=== PATIENT | female | born 1950 | race Caucasian/White ===

== ENCOUNTER 2020-09-02 10:51 | Outpatient (CLI) | payer MEDICARE, BC ==
[2020-09-02 11:17] LABS: Bilirubin Small (Negative); Blood, Urine Moderate (Negative); Clarity Cloudy (Clear); Glucose, Urine (Dipstick) Negative (Negative); Ketone, Urine 15 mg/dL (Negative); Leukocyte Moderate (Negative); Nitrite Negative (Negative); Protein, Urine (Dipstick) > or equal to 300 mg/dL (Neg-Trace); pH, Urine 7.5 (5.0-9.0)
[2020-09-02 11:19] LABS: Specific Gravity, Urine 1.019 (1.002-1.036)
[2020-09-02 11:28] LABS: Bacteria/HPF 4+ HPF (None Seen); RBC/HPF Greater than 50 HPF (0-3); Squamous Epithelial 0-3 HPF (0-3); Triple Phosphate Crystal 1+ HPF (None Seen); WBC/HPF Greater Than 50 HPF (0-3)
[2020-09-02 11:37] LABS: ALT (SGPT) 7 U/L (8-55); AST (SGOT) 13 U/L (5-34); Albumin 3.8 g/dL (3.4-4.8); Alkaline Phosphatase 105 U/L (40-110); Anion Gap 15 mmol/L (10-20); BUN (Urea Nitrogen) 18 mg/dL (9.8-20.1); Bilirubin, Total 0.5 mg/dL (0.2-1.2); Calc. Creatinine Clearance 0 mL/min (70-130); Carbon Dioxide 27 mmol/L (23-31); Chloride 105 mmol/L (98-107); Estimated GFR-MDRD 70; Glucose 104 mg/dL (83-110); Protein, Total 5.8 g/dL (6.0-8.3); Sodium 143 mmol/L (136-145)
[2020-09-02 11:44] LABS: #Basophils 0.1 thou/uL (0.0-0.2); #Eosinphils 0.2 thou/uL (0.0-0.7); #Lymphocytes 0.9 thou/uL (1.20-3.40); #Monocytes 0.4 thou/uL (0.11-0.59); #Neutrophils 3.2 thou/uL (1.40-6.50); %Basophils 1.2 % (0.0-1.0); %Eosinophils 4.6 % (0.0-10.0); %Lymphocytes 19.2 % (21.0-51.0); %Monocytes 8.3 % (0.0-10.0); %Neutrophils 66.7 % (42.0-75.0); Hemoglobin 12.8 g/dL (12.0-16.0); Mean Corpuscular HGB CONC 31.9 g/dL (32.0-36.0); Mean Corpuscular Hemoglobin 31.4 pg (27.0-31.0); Mean Corpuscular Volume 98.4 fL (78.0-98.0); Mean Platelet Volume 8.1 fL (7.4-10.4); Platelet Count 137 thou/uL (130-400); RBC Distribution Width 12.2 % (11.5-14.5); Red Blood Cell (RBC) Count 4.06 mill/uL (4.20-5.40); White Blood Cell (WBC) Count 4.8 thou/uL (4.8-10.8)
== END 2020-09-02 10:52 | disposition home or self-care (01) ==
LOC: MADLAB 10:51
PROVIDERS: ATTEND Psychiatry & Neurology Neurology
DX: G20 Parkinson's disease (principal); I10 Essential (primary) hypertension; I48.91 Unspecified atrial fibrillation; E66.9 Obesity, unspecified
CPT/HCPCS: 80053; 81001; 85025; 87077; 87086

== ENCOUNTER 2020-10-02 15:40 | Inpatient (IN) | payer MEDICARE, BC ==
[2020-10-02] MEDS ORDERED: Melatonin 3 MG TAB PO PRN (18:54)
[2020-10-02] MEDS ORDERED: Loperamide HCl 2 MG CAP PO PRN (18:54)
[2020-10-02] MEDS ORDERED: Calcium Carbonate 500 MG ChewTAB PO PRN (18:54)
[2020-10-02] MEDS ORDERED: Diabetic Tussin 200 MG/10 ML UDCUP PO PRN (18:54)
[2020-10-02] MEDS ORDERED: Cepastat Lozenges 1 LOZ PO PRN (18:54)
[2020-10-02] MEDS ORDERED: Simethicone Chewable 80 MG TAB PO PRN (18:54)
[2020-10-02] MEDS ORDERED: Milk Of Magnesia 30 ML UDCUP PO PRN (18:54)
[2020-10-02] MEDS ORDERED: Albuterol 200 PUFF (6.7GM INHALER) INH PRN (18:54)
[2020-10-02] MEDS ORDERED: cloNIDine 0.1 MG TAB PO PRN (18:54)
[2020-10-02] MEDS: Metoprolol Tartrate 25 MG TAB PO SCH (22:26)
[2020-10-02] MEDS: Aspirin Chewable 81 MG TAB PO SCH (22:26)
--- NOTE | 2020-10-03 06:40 | HP ---
PCP: Garth Darnell MD NEUROLOGIST: Fatmata Sy MD REASON FOR ADMISSION: Skilled rehab in [facility] after recent hospitalization. HISTORY OF PRESENT ILLNESS: Ms. Fuller is a very pleasant 70-year-old female with significant history of Parkinson disease, hypertension, and atrial fibrillation. She initially presented to [facility] on 09/14/2020 due to altered mental status. She was diagnosed then with acute metabolic encephalopathy, most likely secondary to urinary tract infection. She was treated with antibiotics. She was seen by Neurology Service at that time. MRI of the brain did not show any acute intracranial abnormality. She was then diagnosed with nonspecific cerebral dysfunction. The patient improved clinically during the hospital course. She was discharged to [facility] for inpatient rehab due to significant debility. Prior to discharge, it was reported that the patient's blood pressure was noted to be elevated. Metoprolol was added to her losartan. The patient did well during inpatient rehab. She remains on minimal assistance for transfers, bed mobility, and ambulation. She is moderate to maximal assistance for basic ADLs. She is maximal assistance with dressing. She remains to have an unsteady gait and decreased strength and balance. After she completed inpatient rehab, the patient was subsequently referred to [facility] for further skilled rehab prior to going back to the home environment. When evaluated today, the patient is alert and oriented. States that her just left. Most of the information was taken from the records. The patient is able to contribute some of the information. She is comfortable in bed. She reports no new issues at this point. PAST MEDICAL HISTORY: She has a history of CKD stage 2, hypertension, atrial fibrillation, asthma, chronic reflux esophagitis, osteoarthritis, Parkinson disease, esophageal stricture with erosion, status post dilatation, obesity, lumbar disk disease, overactive bladder, history of diverticulitis. PAST SURGICAL HISTORY: Appendectomy, hysterectomy, TKR, spinal surgery, esophageal dilatation, A & P repair non-mesh, cardiac catheterization, EGD, BTL, , colonoscopy, right knee surgery x3, urodynamic, right forearm tendon repair. FAMILY HISTORY: Noncontributory. SOCIAL HISTORY: She is . She denies history of tobacco, alcohol, or illicit drug use. CURRENT MEDICATIONS: 1. Acetaminophen 1000 mg p.o. q.4 hours p.r.n. 2. Albuterol, Proventil, 2 puffs q.4 hours p.r.n. 3. Amantadine 100 mg q.7 a.m., 1230 and 1830 scheduled. 4. Aspirin 81 mg p.o. at bedtime. 5. Bisacodyl 10 mg daily p.r.n. 6. Calcium carbonate 500 mg p.o. q.i.d. p.r.n. 7. Sinemet 50/200 three times a day, scheduled at 7:00 a.m., 12:30 p.m., 6:30 p.m. 8. Clonidine 0.1 mg p.o. q.6 hours p.r.n. 9. Guaifenesin 1000 mg p.o. q.4 hours p.r.n. 10. Loperamide 2 mg p.o. p.r.n. for diarrhea. 11. Magnesium hydroxide or milk of magnesia 30 mL p.o. daily p.r.n. 12. Melatonin 6 mg p.o. at bedtime p.r.n. 13. Metoprolol 12.5 mg p.o. b.i.d. 14. Myrbetriq 50 mg p.o. q.12:30 schedule. 15. Pantoprazole 40 mg p.o. q.a.m. 16. Polyethylene glycol 17 g p.o. daily. 17. Florastor 250 mg p.o. daily. 18. Simethicone 80 mg t.i.d. p.r.n. 19. Throat lozenges one p.o. b.i.d. 20. Trospium 20 mg p.o. b.i.d. 21. Losartan 100 mg p.o. daily. REVIEW OF SYSTEMS: GENERAL: Denies fever or chills. Reports fatigue, general weakness. HEENT: No acute visual changes or hearing changes, cold symptoms. RESPIRATORY: No shortness of breath, chronic cough, sputum production. Reports history of asthma, baseline symptoms. CARDIO: Denies chest pain, dyspnea on exertion, edema, palpitations. GI: No nausea, vomiting, abdominal pain. Reports constipation. GENITOURINARY: No dysuria, hematuria, frequency, or urgency. Reports incontinence. NEURO: Denies paresthesia, focal paralysis, incoordination. MUSCULOSKELETAL: Reports myalgia, stiffness. No joint swelling. SKIN: Denies rashes or lesions. PSYCH: Denies depressive symptoms, insomnia, or anxiety. PHYSICAL EXAMINATION: VITAL SIGNS: Current vital signs, blood pressure 134/80, temperature 98.4, pulse 74, respirations 18, O2 saturations 96%. Weight 147 pounds and 2 ounces. Height 5 feet 2 inches. GENERAL: The patient is awake, alert, and oriented x3. Not in distress, comfortable in bed. HEENT: Normocephalic, atraumatic. PERRL; intact EOM, anicteric sclerae. Oral mucosa is moist. NECK: Supple. No LAD. No JVD. CHEST: Normal excursion. Clear to auscultation bilaterally. CARDIAC: Rate controlled. Normal S1 and S2. No murmurs. ABDOMEN: Flat, soft. Normoactive bowel sounds. Nondistended, nontender. Negative CVA tenderness in bilaterally. EXTREMITIES: No edema. No cyanosis. NEUROLOGIC: Nonfocal. Speech: stuttering some, but able to express self. Cogwheel rigidity noted. Gait unsteady. PSYCH: Clam, appropriate mood and affect. ASSESSMENT AND PLAN: 1. Deconditioning secondary to general weakness. 2. Parkinson disease. 3. Hypertension. 4. Paroxysmal atrial fibrillation. 5. History of toxic metabolic encephalopathy secondary to urinary tract infection. 6. History of urinary tract infection with Proteus mirabilis.Treated. 7. Urinary incontinence. 8. History of oropharyngeal dysphagia, currently on regular diet and thin liquids. 9. History of asthma. 10. Chronic gastroesophageal reflux disease. 11. Overactive bladder. PLAN: Patient is admitted to [facility] for skilled rehab. We will continue current medications as per list. PT, OT eval and treat. We will consult dietitian to evaluate and make any recommendations for better nutrition. We will watch calorie intake and p.o. intake. We will monitor closely for signs of infection or breakdown. We will monitor for signs of UTI secondary to history of recent UTI. Per records, the patient's baseline functional status was reported to be ambulatory independently with ADL contact guard. The patient is expected to participate and benefit from skilled rehab and hopefully will be able to go back home when therapy goal is met. ESTIMATED LENGTH OF STAY: Two to three weeks. Job ID: [id number] [facility]
[2020-10-03] MEDS ORDERED: Amantadine HCl 100 mg Capsule PO SCH (07:00)
[2020-10-03] MEDS ORDERED: Carbidopa/Levodopa CR 50-200 mg Tablet PO SCH (07:00)
[2020-10-03] MEDS: Trospium 20 MG TAB PO SCH ×2 (08:53→20:48)
[2020-10-03] MEDS: Metoprolol Tartrate 25 MG TAB PO SCH ×2 (08:53→20:48)
[2020-10-03] MEDS: Saccharomyces boulardii 250 MG CAP PO SCH (08:53)
[2020-10-03] MEDS: Amantadine HCl 100 mg Capsule PO SCH ×3 (08:53→20:46)
[2020-10-03] MEDS: Carbidopa/Levodopa CR 50-200 mg Tablet PO SCH ×3 (08:54→20:46)
[2020-10-03] MEDS: Losartan 25 MG TAB PO SCH (08:54)
[2020-10-03] MEDS: Polyethylene Glycol 3350 17 GM Packet PO SCH (08:55)
[2020-10-03] MEDS: Aspirin Chewable 81 MG TAB PO SCH (20:47)
[2020-10-04] MEDS: Trospium 20 MG TAB PO SCH ×2 (08:11→21:05)
[2020-10-04] MEDS: Saccharomyces boulardii 250 MG CAP PO SCH (08:11)
[2020-10-04] MEDS: Polyethylene Glycol 3350 17 GM Packet PO SCH (08:11)
[2020-10-04] MEDS: Amantadine HCl 100 mg Capsule PO SCH ×3 (08:12→20:09)
[2020-10-04] MEDS: Losartan 25 MG TAB PO SCH (08:12)
[2020-10-04] MEDS: Metoprolol Tartrate 25 MG TAB PO SCH ×2 (08:13→20:10)
[2020-10-04] MEDS: Carbidopa/Levodopa CR 50-200 mg Tablet PO SCH ×3 (08:13→20:10)
[2020-10-04] MEDS: Aspirin Chewable 81 MG TAB PO SCH (20:10)
[2020-10-05] MEDS: Polyethylene Glycol 3350 17 GM Packet PO SCH (08:17)
[2020-10-05] MEDS: Trospium 20 MG TAB PO SCH ×2 (08:18→19:59)
[2020-10-05] MEDS: Losartan 25 MG TAB PO SCH (08:18)
[2020-10-05] MEDS: Amantadine HCl 100 mg Capsule PO SCH ×3 (08:18→19:59)
[2020-10-05] MEDS: Saccharomyces boulardii 250 MG CAP PO SCH (08:19)
[2020-10-05] MEDS: Carbidopa/Levodopa CR 50-200 mg Tablet PO SCH ×3 (08:19→20:00)
[2020-10-05] MEDS: Metoprolol Tartrate 25 MG TAB PO SCH ×2 (08:19→19:59)
[2020-10-05] MEDS ORDERED: Diabetic Tussin 200 MG/10 ML UDCUP PO PRN (13:08)
[2020-10-05] MEDS: Aspirin Chewable 81 MG TAB PO SCH (19:59)
[2020-10-06] MEDS: Metoprolol Tartrate 25 MG TAB PO SCH ×2 (08:11→20:40)
[2020-10-06] MEDS: Saccharomyces boulardii 250 MG CAP PO SCH (08:11)
[2020-10-06] MEDS: Trospium 20 MG TAB PO SCH ×2 (08:12→20:40)
[2020-10-06] MEDS: Carbidopa/Levodopa CR 50-200 mg Tablet PO SCH ×3 (08:12→20:47)
[2020-10-06] MEDS: Amantadine HCl 100 mg Capsule PO SCH ×3 (08:12→20:45)
[2020-10-06] MEDS: Losartan 25 MG TAB PO SCH (08:12)
[2020-10-06] MEDS: Polyethylene Glycol 3350 17 GM Packet PO SCH (08:18)
[2020-10-06] MEDS: Aspirin Chewable 81 MG TAB PO SCH (20:40)
[2020-10-07] MEDS: Saccharomyces boulardii 250 MG CAP PO SCH (08:48)
[2020-10-07] MEDS: Carbidopa/Levodopa CR 50-200 mg Tablet PO SCH ×3 (08:48→20:11)
[2020-10-07] MEDS: Trospium 20 MG TAB PO SCH ×2 (08:48→20:11)
[2020-10-07] MEDS: Metoprolol Tartrate 25 MG TAB PO SCH ×2 (08:48→20:11)
[2020-10-07] MEDS: Amantadine HCl 100 mg Capsule PO SCH ×3 (08:48→20:11)
[2020-10-07] MEDS: Acetaminophen 500 MG TAB PO PRN (08:50)
[2020-10-07] MEDS: Polyethylene Glycol 3350 17 GM Packet PO SCH (08:51)
[2020-10-07] MEDS: Losartan 25 MG TAB PO SCH (08:54)
[2020-10-07] MEDS: Aspirin Chewable 81 MG TAB PO SCH (20:11)
[2020-10-08] MEDS: Bisacodyl 10 MG SUPP PR PRN (00:24)
[2020-10-08] MEDS: Amantadine HCl 100 mg Capsule PO SCH ×3 (08:10→20:09)
[2020-10-08] MEDS: Carbidopa/Levodopa CR 50-200 mg Tablet PO SCH ×3 (08:10→20:11)
[2020-10-08] MEDS: Polyethylene Glycol 3350 17 GM Packet PO SCH (08:11)
[2020-10-08] MEDS: Trospium 20 MG TAB PO SCH ×2 (08:11→20:11)
[2020-10-08] MEDS: Saccharomyces boulardii 250 MG CAP PO SCH (08:11)
[2020-10-08] MEDS: Losartan 25 MG TAB PO SCH (08:11)
[2020-10-08] MEDS: Metoprolol Tartrate 25 MG TAB PO SCH ×2 (08:11→20:09)
[2020-10-08] MEDS: Aspirin Chewable 81 MG TAB PO SCH (20:11)
[2020-10-08] MEDS: Acetaminophen 500 MG TAB PO PRN (20:11)
[2020-10-09] MEDS: Amantadine HCl 100 mg Capsule PO SCH ×3 (07:51→19:55)
[2020-10-09] MEDS: Saccharomyces boulardii 250 MG CAP PO SCH (07:52)
[2020-10-09] MEDS: Polyethylene Glycol 3350 17 GM Packet PO SCH (07:52)
[2020-10-09] MEDS: Carbidopa/Levodopa CR 50-200 mg Tablet PO SCH ×3 (07:52→19:55)
[2020-10-09] MEDS: Trospium 20 MG TAB PO SCH ×2 (07:52→19:57)
[2020-10-09] MEDS: Losartan 25 MG TAB PO SCH (07:52)
[2020-10-09] MEDS: Metoprolol Tartrate 25 MG TAB PO SCH ×2 (07:59→19:56)
[2020-10-09 15:55] LABS: Bilirubin Negative (Negative); Blood, Urine Negative (Negative); Clarity Clear (Clear); Glucose, Urine (Dipstick) Negative (Negative); Ketone, Urine Negative (Negative); Leukocyte Negative (Negative); Nitrite Negative (Negative); Protein, Urine (Dipstick) Negative (Neg-Trace); Urobilinogen 0.2 mg/dL (Less than 2)
[2020-10-09 16:04] LABS: Bacteria/HPF Rare-Few HPF (None Seen); RBC/HPF 0-3 HPF (0-3); Squamous Epithelial None Seen HPF (0-3); Yeast-Hyphae Rare HPF (None Seen)
[2020-10-09] MEDS: Aspirin Chewable 81 MG TAB PO SCH (19:56)
[2020-10-10] MEDS: Carbidopa/Levodopa CR 50-200 mg Tablet PO SCH ×3 (08:17→20:31)
[2020-10-10] MEDS: Amantadine HCl 100 mg Capsule PO SCH ×3 (08:17→20:30)
[2020-10-10] MEDS: Polyethylene Glycol 3350 17 GM Packet PO SCH (08:17)
[2020-10-10] MEDS: Metoprolol Tartrate 25 MG TAB PO SCH ×2 (08:18→20:31)
[2020-10-10] MEDS: Losartan 25 MG TAB PO SCH (08:18)
[2020-10-10] MEDS: Saccharomyces boulardii 250 MG CAP PO SCH (08:19)
[2020-10-10] MEDS: Trospium 20 MG TAB PO SCH ×2 (08:19→20:31)
[2020-10-10] MEDS: Aspirin Chewable 81 MG TAB PO SCH (20:31)
[2020-10-10] MEDS: Mirtazapine 15 MG TAB PO SCH (20:31)
[2020-10-11] MEDS: Polyethylene Glycol 3350 17 GM Packet PO SCH (08:35)
[2020-10-11] MEDS: Trospium 20 MG TAB PO SCH ×2 (08:36→20:49)
[2020-10-11] MEDS: Metoprolol Tartrate 25 MG TAB PO SCH ×2 (08:36→20:48)
[2020-10-11] MEDS: Saccharomyces boulardii 250 MG CAP PO SCH (08:36)
[2020-10-11] MEDS: Carbidopa/Levodopa CR 50-200 mg Tablet PO SCH ×3 (08:36→20:48)
[2020-10-11] MEDS: Amantadine HCl 100 mg Capsule PO SCH ×3 (08:36→20:48)
[2020-10-11] MEDS: Losartan 25 MG TAB PO SCH (08:37)
[2020-10-11] MEDS: Aspirin Chewable 81 MG TAB PO SCH (20:49)
[2020-10-11] MEDS: Mirtazapine 15 MG TAB PO SCH (20:49)
[2020-10-12] MEDS: Losartan 25 MG TAB PO SCH (07:53)
[2020-10-12] MEDS: Metoprolol Tartrate 25 MG TAB PO SCH ×2 (07:53→20:50)
[2020-10-12] MEDS: Polyethylene Glycol 3350 17 GM Packet PO SCH (07:53)
[2020-10-12] MEDS: Amantadine HCl 100 mg Capsule PO SCH ×3 (07:53→20:49)
[2020-10-12] MEDS: Carbidopa/Levodopa CR 50-200 mg Tablet PO SCH ×3 (07:53→20:50)
[2020-10-12] MEDS: Saccharomyces boulardii 250 MG CAP PO SCH (07:54)
[2020-10-12] MEDS: Trospium 20 MG TAB PO SCH ×2 (07:54→20:49)
[2020-10-12 12:43] LABS: ALT (SGPT) Less than 7 U/L (8-55); AST (SGOT) 16 U/L (5-34); Albumin 3.9 g/dL (3.4-4.8); Alkaline Phosphatase 89 U/L (40-110); Anion Gap 16 mmol/L (10-20); BUN (Urea Nitrogen) 28 mg/dL (9.8-20.1); Bilirubin, Total 0.7 mg/dL (0.2-1.2); Calc. Creatinine Clearance 48 mL/min (70-130); Calcium 9.2 mg/dL (7.8-10.44); Carbon Dioxide 26 mmol/L (23-31); Chloride 99 mmol/L (98-107); Globulin 2.3 g/dL (2.4-3.5); Glucose 122 mg/dL (83-110); Potassium 4.1 mmol/L (3.5-5.1); Protein, Total 6.2 g/dL (6.0-8.3); Sodium 137 mmol/L (136-145)
[2020-10-12 13:01] LABS: %Eosinophils 3.6 % (0.0-10.0); %Monocytes 7.3 % (0.0-10.0); %Neutrophils 71.1 % (42.0-75.0); Hemoglobin 12.7 g/dL (12.0-16.0); Mean Corpuscular HGB CONC 32.5 g/dL (32.0-36.0); Mean Corpuscular Volume 98.2 fL (78.0-98.0); Mean Platelet Volume 9.4 fL (7.4-10.4); Platelet Count 131 thou/uL (130-400); RBC Distribution Width 12.7 % (11.5-14.5); Red Blood Cell (RBC) Count 3.97 mill/uL (4.20-5.40); White Blood Cell (WBC) Count 7.1 thou/uL (4.8-10.8)
[2020-10-12 13:02] LABS: #Basophils 0.1 thou/uL (0.0-0.2); #Eosinphils 0.3 thou/uL (0.0-0.7); #Lymphocytes 1.2 thou/uL (1.20-3.40); #Monocytes 0.5 thou/uL (0.11-0.59); #Neutrophils 5.1 thou/uL (1.40-6.50)
[2020-10-12] MEDS: Aspirin Chewable 81 MG TAB PO SCH (20:49)
[2020-10-12] MEDS: Mirtazapine 15 MG TAB PO SCH (20:50)
[2020-10-12] MEDS: Bisacodyl 10 MG SUPP PR PRN (23:35)
[2020-10-13] MEDS: Trospium 20 MG TAB PO SCH ×2 (07:59→20:03)
[2020-10-13] MEDS: Carbidopa/Levodopa CR 50-200 mg Tablet PO SCH ×3 (07:59→20:03)
[2020-10-13] MEDS: Losartan 25 MG TAB PO SCH (07:59)
[2020-10-13] MEDS: Saccharomyces boulardii 250 MG CAP PO SCH (07:59)
[2020-10-13] MEDS: Amantadine HCl 100 mg Capsule PO SCH ×3 (07:59→20:03)
[2020-10-13] MEDS: Metoprolol Tartrate 25 MG TAB PO SCH ×2 (08:00→20:03)
[2020-10-13] MEDS: Polyethylene Glycol 3350 17 GM Packet PO SCH (08:01)
[2020-10-13] MEDS: Aspirin Chewable 81 MG TAB PO SCH (20:02)
[2020-10-13] MEDS: Mirtazapine 15 MG TAB PO SCH (20:03)
--- NOTE | 2020-10-13 20:05 | PRG ---
DATE OF SERVICE: 10/13/2020 SUBJECTIVE: The patient was seen and examined at the bedside. At this time, no adverse events per nursing. Patient's who is also at the bedside, states the patient has been more rigid and more tremulous lately. He expresses concern that the patient may have missed her a.m. dose of carbidopa/levodopa; however when verified with nursing, patient did receive this medication and was observed to have fully consumed her medication. Otherwise, no adverse events. OBJECTIVE: VITAL SIGNS: Temperature 98.5, pulse 81, respirations 18, oxygen 98% on room air, blood pressure 133/71. GENERAL: The patient is awake, alert, and oriented x3. She does not appear to be in any distress. HEENT: Normocephalic, atraumatic. Extraocular muscles are intact. Moist mucous membranes. CARDIOVASCULAR: Regular rate and rhythm. No murmurs, rubs, or gallops. LUNGS: Clear to auscultation bilaterally. ABDOMEN: Soft, nondistended. Normoactive bowel sounds. NEUROLOGICAL: Cranial nerves 2-12 appear to be intact grossly. The patient does make incomprehensible sounds, but she does not respond appropriately to questioning at this time. She does appear to be very severely rigid and contracted in bilateral upper extremities. GENITOURINARY: Morelos draining clear to dark yellow urine. ASSESSMENT: 1. Physical deconditioning. 2. Parkinson's disease with worsening and rigidity. 3. Hypertension. 4. Paroxysmal atrial fibrillation. 5. Urinary retention. 6. History of overactive bladder. PLAN: 1. Regarding physical deconditioning, physical therapy and occupational therapy are in place. 2. Regarding the patient's history of Parkinson disease, we will continue her current medications. An appointment with Neurology has been set up for tomorrow. 3. Regarding patient's chronic medical conditions, all home medications have been restarted. 4. Regarding urinary retention, we will continue indwelling Morelos placement. We will consider exchanging Morelos within a week. The patient did not tolerate bladder training very well. Due to the fact that patient has been profoundly weak with physical therapy and occupational therapy, she will likely need chcf placement, which has been discussed with patient's and family. We will continue to work on placement prior to discharge. Job ID: [id number]
[2020-10-14] MEDS: Losartan 25 MG TAB PO SCH (08:42)
[2020-10-14] MEDS: Carbidopa/Levodopa CR 50-200 mg Tablet PO SCH ×3 (08:42→20:13)
[2020-10-14] MEDS: Trospium 20 MG TAB PO SCH ×2 (08:43→20:13)
[2020-10-14] MEDS: Saccharomyces boulardii 250 MG CAP PO SCH (08:43)
[2020-10-14] MEDS: Amantadine HCl 100 mg Capsule PO SCH ×3 (08:43→20:13)
[2020-10-14] MEDS: Metoprolol Tartrate 25 MG TAB PO SCH ×2 (08:43→20:14)
[2020-10-14] MEDS: Acetaminophen 500 MG TAB PO PRN (08:44)
[2020-10-14] MEDS: Polyethylene Glycol 3350 17 GM Packet PO SCH (08:44)
[2020-10-14] MEDS: Mirtazapine 15 MG TAB PO SCH (20:13)
[2020-10-14] MEDS: Aspirin Chewable 81 MG TAB PO SCH (20:13)
[2020-10-15] MEDS: Saccharomyces boulardii 250 MG CAP PO SCH (08:04)
[2020-10-15] MEDS: Trospium 20 MG TAB PO SCH ×2 (08:04→21:49)
[2020-10-15] MEDS: Amantadine HCl 100 mg Capsule PO SCH ×3 (08:04→21:50)
[2020-10-15] MEDS: Polyethylene Glycol 3350 17 GM Packet PO SCH (08:04)
[2020-10-15] MEDS: Losartan 25 MG TAB PO SCH (08:05)
[2020-10-15] MEDS: Carbidopa/Levodopa CR 50-200 mg Tablet PO SCH ×3 (08:05→21:50)
[2020-10-15] MEDS: Metoprolol Tartrate 25 MG TAB PO SCH ×2 (08:05→21:49)
[2020-10-15] MEDS: Mirtazapine 15 MG TAB PO SCH (21:49)
[2020-10-15] MEDS: Aspirin Chewable 81 MG TAB PO SCH (21:50)
[2020-10-16] MEDS: Polyethylene Glycol 3350 17 GM Packet PO SCH (08:22)
[2020-10-16] MEDS: Carbidopa/Levodopa CR 50-200 mg Tablet PO SCH ×3 (08:23→21:29)
[2020-10-16] MEDS: Saccharomyces boulardii 250 MG CAP PO SCH (08:24)
[2020-10-16] MEDS: Metoprolol Tartrate 25 MG TAB PO SCH ×2 (08:24→21:30)
[2020-10-16] MEDS: Trospium 20 MG TAB PO SCH ×2 (08:24→21:30)
[2020-10-16] MEDS: Amantadine HCl 100 mg Capsule PO SCH ×3 (08:24→21:29)
[2020-10-16] MEDS: Losartan 25 MG TAB PO SCH (08:25)
[2020-10-16] MEDS: Mirtazapine 15 MG TAB PO SCH (21:31)
[2020-10-16] MEDS: Aspirin Chewable 81 MG TAB PO SCH (21:39)
[2020-10-17] MEDS: Trospium 20 MG TAB PO SCH ×2 (09:25→20:31)
[2020-10-17] MEDS: Polyethylene Glycol 3350 17 GM Packet PO SCH ×2 (09:26→09:27)
[2020-10-17] MEDS: Saccharomyces boulardii 250 MG CAP PO SCH (09:26)
[2020-10-17] MEDS: Amantadine HCl 100 mg Capsule PO SCH ×3 (09:26→20:28)
[2020-10-17] MEDS: Metoprolol Tartrate 25 MG TAB PO SCH ×2 (09:26→20:30)
[2020-10-17] MEDS: Losartan 25 MG TAB PO SCH (09:26)
[2020-10-17] MEDS: Carbidopa/Levodopa CR 50-200 mg Tablet PO SCH ×3 (09:28→20:30)
[2020-10-17] MEDS: Acetaminophen 500 MG TAB PO PRN ×2 (09:28→17:34)
[2020-10-17] MEDS: Bisacodyl 10 MG SUPP PR PRN (17:30)
[2020-10-17] MEDS: Aspirin Chewable 81 MG TAB PO SCH (20:28)
[2020-10-17] MEDS: Mirtazapine 15 MG TAB PO SCH (20:29)
[2020-10-18] MEDS: Metoprolol Tartrate 25 MG TAB PO SCH ×2 (09:09→21:23)
[2020-10-18] MEDS: Saccharomyces boulardii 250 MG CAP PO SCH (09:12)
[2020-10-18] MEDS: Trospium 20 MG TAB PO SCH ×2 (09:12→21:23)
[2020-10-18] MEDS: Losartan 25 MG TAB PO SCH (09:13)
[2020-10-18] MEDS: Acetaminophen 500 MG TAB PO PRN (09:14)
[2020-10-18] MEDS: Amantadine HCl 100 mg Capsule PO SCH ×3 (09:15→21:23)
[2020-10-18] MEDS: Polyethylene Glycol 3350 17 GM Packet PO SCH (09:16)
[2020-10-18] MEDS: Carbidopa/Levodopa CR 50-200 mg Tablet PO SCH ×3 (09:17→21:23)
[2020-10-18] MEDS: Aspirin Chewable 81 MG TAB PO SCH (21:23)
[2020-10-18] MEDS: Mirtazapine 15 MG TAB PO SCH (21:25)
[2020-10-18] MEDS: Nystatin 500,000 UNITS/5 ML UDCUP SSW SCH (21:25)
[2020-10-19] MEDS: Metoprolol Tartrate 25 MG TAB PO SCH ×2 (07:59→19:51)
[2020-10-19] MEDS: Losartan 25 MG TAB PO SCH (08:00)
[2020-10-19] MEDS: Carbidopa/Levodopa CR 50-200 mg Tablet PO SCH ×3 (08:00→19:51)
[2020-10-19] MEDS: Nystatin 500,000 UNITS/5 ML UDCUP SSW SCH ×4 (08:00→19:52)
[2020-10-19] MEDS: Saccharomyces boulardii 250 MG CAP PO SCH (08:00)
[2020-10-19] MEDS: Trospium 20 MG TAB PO SCH ×2 (08:00→19:57)
[2020-10-19] MEDS: Amantadine HCl 100 mg Capsule PO SCH ×3 (08:00→19:51)
[2020-10-19] MEDS: Aspirin Chewable 81 MG TAB PO SCH (19:51)
[2020-10-19] MEDS: Mirtazapine 15 MG TAB PO SCH (19:53)
[2020-10-20] MEDS: Trospium 20 MG TAB PO SCH ×2 (08:19→20:46)
[2020-10-20] MEDS: Carbidopa/Levodopa CR 50-200 mg Tablet PO SCH ×3 (08:19→20:47)
[2020-10-20] MEDS: Amantadine HCl 100 mg Capsule PO SCH ×3 (08:19→20:46)
[2020-10-20] MEDS: Polyethylene Glycol 3350 17 GM Packet PO SCH (08:19)
[2020-10-20] MEDS: Nystatin 500,000 UNITS/5 ML UDCUP SSW SCH ×4 (08:19→20:46)
[2020-10-20] MEDS: Saccharomyces boulardii 250 MG CAP PO SCH (08:19)
[2020-10-20] MEDS: Metoprolol Tartrate 25 MG TAB PO SCH ×2 (08:20→20:46)
[2020-10-20] MEDS: Losartan 25 MG TAB PO SCH (08:21)
[2020-10-20] MEDS ORDERED: PIMAVANSERIN PO SCH (13:30)
[2020-10-20] MEDS: Aspirin Chewable 81 MG TAB PO SCH (20:46)
[2020-10-20] MEDS: Mirtazapine 15 MG TAB PO SCH (20:46)
[2020-10-21] MEDS: Polyethylene Glycol 3350 17 GM Packet PO SCH (08:04)
[2020-10-21] MEDS: Trospium 20 MG TAB PO SCH ×2 (08:05→20:48)
[2020-10-21] MEDS: Nystatin 500,000 UNITS/5 ML UDCUP SSW SCH ×4 (08:05→20:48)
[2020-10-21] MEDS: Metoprolol Tartrate 25 MG TAB PO SCH ×2 (08:06→20:49)
[2020-10-21] MEDS: Amantadine HCl 100 mg Capsule PO SCH ×3 (08:06→20:49)
[2020-10-21] MEDS: Losartan 25 MG TAB PO SCH (08:06)
[2020-10-21] MEDS: Saccharomyces boulardii 250 MG CAP PO SCH (08:06)
[2020-10-21] MEDS: Carbidopa/Levodopa CR 50-200 mg Tablet PO SCH ×3 (08:07→20:49)
[2020-10-21] MEDS: Mirtazapine 15 MG TAB PO SCH (20:48)
[2020-10-21] MEDS: Aspirin Chewable 81 MG TAB PO SCH (20:49)
[2020-10-22 07:28] VITALS: BP 153/82; TEMP 98.7
[2020-10-22] MEDS: Losartan 25 MG TAB PO SCH (08:28)
[2020-10-22] MEDS: Amantadine HCl 100 mg Capsule PO SCH ×2 (08:28→14:10)
[2020-10-22] MEDS: Carbidopa/Levodopa CR 50-200 mg Tablet PO SCH ×2 (08:28→14:10)
[2020-10-22] MEDS: Metoprolol Tartrate 25 MG TAB PO SCH (08:29)
[2020-10-22] MEDS: Saccharomyces boulardii 250 MG CAP PO SCH (08:30)
[2020-10-22] MEDS: Polyethylene Glycol 3350 17 GM Packet PO SCH (08:30)
[2020-10-22] MEDS: Nystatin 500,000 UNITS/5 ML UDCUP SSW SCH ×2 (08:30→14:10)
[2020-10-22] MEDS: Trospium 20 MG TAB PO SCH (08:30)
[2020-10-22 08:38] LABS: Bilirubin Negative (Negative); Blood, Urine Negative (Negative); Clarity Slightly Cloudy (Clear); Glucose, Urine (Dipstick) Negative (Negative); Ketone, Urine Negative (Negative); Leukocyte Large (Negative); Nitrite Negative (Negative); Protein, Urine (Dipstick) 30 mg/dL (Neg-Trace); Specific Gravity, Urine 1.015 (1.005-1.030)
[2020-10-22 10:06] LABS: RBC/HPF 0-3 HPF (0-3)
[2020-10-22 10:07] LABS: Bacteria/HPF 2+ HPF (None Seen); Squamous Epithelial 0-3 HPF (0-3)
[2020-10-22] MEDS ORDERED: Cefdinir 300 MG CAP PO SCH (12:30)
--- NOTE | 2020-10-23 14:24 | DIS ---
DATE OF ADMISSION: 10/02/2020 DATE OF DISCHARGE: 10/22/2020 ADMITTING ATTENDING: Adina Cason MD DISCHARGING ATTENDING: Karmen Mccarty MD PRIMARY DIAGNOSES: 1. Deconditioning secondary to generalized weakness. 2. Parkinson's disease. SECONDARY DIAGNOSES: 1. Hypertension. 2. Paroxysmal atrial fibrillation. 3. Urinary tract infection. 4. Chronic gastroesophageal reflux disease. 5. Urinary retention. DISCHARGE MEDICATIONS: 1. Omnicef 300 mg p.o. q.12 hours x7 days. 2. Tolterodine tartrate 4 mg p.o. daily. 3. Simethicone 80 mg p.o. t.i.d. p.r.n. 4. Florastor 250 mg p.o. daily. 5. MiraLAX 17 g p.o. daily p.r.n. 6. Melatonin 6 mg p.o. at bedtime p.r.n. 7. Magnesium hydroxide 30 mL p.o. daily p.r.n. 8. Loperamide 2 mg p.o. daily p.r.n. 9. Guaifenesin 10 mL p.o. q.4 hours p.r.n. 10. Clonidine 0.1 mg p.o. q.6 hours p.r.n. 11. Carbidopa levodopa CR 50-200 mg one tab p.o. t.i.d. 12. Calcium carbonate 1 to 2 tabs p.o. q.i.d. p.r.n. 13. Bisacodyl suppository 10 mg p.r. daily p.r.n. 14. Cepacol throat lozenge one tab p.o. b.i.d. p.r.n. 15. Aspirin 81 mg p.o. at bedtime. 16. Aspirin 1000 mg p.o. q.4 hours p.r.n. 17. Metoprolol tartrate 12.5 mg p.o. b.i.d. 18. Losartan 100 mg p.o. daily. 19. Myrbetriq 50 mg p.o. daily. 20. Omeprazole 40 mg p.o. q.a.m. 21. Albuterol sulfate 2 puffs inhaled q.4 hours p.r.n. DISCONTINUED MEDICATIONS: Amantadine 100 mg p.o. t.i.d. HOSPITAL COURSE: The patient is a 70-year-old female, admitted to [facility]. The patient did progress well with physical therapy, occupational therapy, however, still was requiring total care and for this reason, the decision was made for [facility]. Arrangements were made for patient to be discharged to [facility]. Of note, the patient did have a Morelos placed and arrangements made for patient to follow up with Urology upon discharge. On the day of discharge, patient's urine was noted to be cloudy. Urinalysis did suggest infection and so the patient was restarted on antibiotics. Urine culture is pending at the time of discharge. DISCHARGE INSTRUCTIONS: 1. Location: [facility]. 2. Activity: Ad brooke with assistance. 3. Diet: Heart healthy with dysphagia modification. 4. Followup: Patient will need to follow up with Dr. Powell in 7 to 10 days for recurrent urinary tract infection and urinary retention, status post failed bladder training. Job ID: [id number]
== END 2020-10-22 16:50 | DRG 948 ==
LOC: MADMS 15:40
PROVIDERS: ADMIT Family Medicine; ATTEND Family Medicine
DX: R53.1 Weakness (principal); N39.0 Urinary tract infection, site not specified; R53.81 Other malaise; K21.9 Gastro-esophageal reflux disease without esophagitis; G20 Parkinson's disease; I12.9 Hypertensive chronic kidney disease with stage 1 through stage 4 chronic kidney disease, or unspecified chronic kidney disease; N18.2 Chronic kidney disease, stage 2 (mild); K21.00 Gastro-esophageal reflux disease with esophagitis, without bleeding; M19.90 Unspecified osteoarthritis, unspecified site; E66.9 Obesity, unspecified; J45.909 Unspecified asthma, uncomplicated; R33.9 Retention of urine, unspecified; R26.89 Other abnormalities of gait and mobility; R32 Unspecified urinary incontinence; N32.81 Overactive bladder; I48.0 Paroxysmal atrial fibrillation; Z90.49 Acquired absence of other specified parts of digestive tract; Z90.710 Acquired absence of both cervix and uterus; Z98.890 Other specified postprocedural states; Z79.82 Long term (current) use of aspirin; Z79.899 Other long term (current) drug therapy; Z79.51 Long term (current) use of inhaled steroids
CPT/HCPCS: 36415; 80053; 81001; 85025; 87086